=== PATIENT | female | born 1990 | race Hispanic/Latino ===

== ENCOUNTER 2019-02-08 23:32 | Emergency (ER) | payer SELFPAY ==
[2019-02-09] MEDS ORDERED: Loperamide HCl 2 MG CAP ONE (00:01)
[2019-02-09] MEDS ORDERED: Dexamethasone 10 MG/ML VIAL ONE (00:01)
[2019-02-09] MEDS ORDERED: Ondansetron ODT 4 MG TAB ONE (00:01)
== END 2019-02-09 00:20 | disposition home or self-care (01) ==
LOC: MADERS 23:32
DX: J20.9 Acute bronchitis, unspecified (principal); B96.89 Other specified bacterial agents as the cause of diseases classified elsewhere
CPT/HCPCS: 94640; 96372; J1100; J7620; Q0162